=== PATIENT | female | born 1960 | race Caucasian/White ===

== ENCOUNTER → 2016-02-25 | Outpatient (CLI) | payer OTHER ==
[~2016-02-25] MED LIST: THROMBIN (RECOMBINANT) 5,000 UNIT VIAL TP ONE
--- NOTE | 2016-02-25 10:07 | MA ---
Diagnostic Digital Mammogram Left Breast Reason for examination: Follow up sonographically guided left breast biopsy. Technique: Craniocaudal and true lateral views were obtained. Findings: The Suros marker is deployed at the biopsy site in the upper left breast at approximately t he 11:00 position. Impression: The Suros marker is deployed at the biopsy site. We will await pathologic results.
--- NOTE | 2016-02-25 10:43 | US ---
Vacuum-Assisted Ultrasound-Guided Core Biopsy of the Left Breast Reason for examination: Evaluate suspicious nodule at the 11:00 position of the left breast. Crosscutting Measure #226: Current tobacco user: no. Technique: Informed consent was obtained. Following sterile preparation and local anesthesia and util izing vacuum assistance and sonographic guidance, a 9-gauge Suros needle was advanced into the lesion . Multiple large core biopsies were obtained. The biopsy was performed with continuous real time sono graphic monitoring. A Suros marker was deployed to haseeb the biopsy site. The needle was removed and h emostasis was obtained with manual compression. The patient tolerated the procedure well and no immed iate complications occurred. A post biopsy mammogram will be obtained to evaluate marker deployment. Discharge instructions were given by the Radiology nurse. Impression: Successful sonographically guided large core left breast biopsy. Material was sent to Pathology. We will await results.
[2016-03-01 14:16] LABS: ACCESSION # HR17-3316 (()); INTERPRETATION See Comments (())
== END ==
LOC: FIMAGING 08:20
PROVIDERS: ATTEND Radiology Diagnostic Radiology
PROC: 0HBU3ZX Excision of Left Breast, Percutaneous Approach, Diagnostic (ICD-10-PCS; principal; 2016-02-25)
DX: C50.912 Malignant neoplasm of unspecified site of left female breast (principal)
CPT/HCPCS: G0206

== ENCOUNTER → 2016-03-24 | Outpatient (CLI) | payer OTHER ==
[~2016-03-24] MED LIST changes: +GADOBUTROL 10 ML VIAL IVP ONE; -THROMBIN (RECOMBINANT) 5,000 UNIT VIAL TP ONE
== END ==
LOC: FIMAGING 06:59
PROVIDERS: ATTEND Internal Medicine Hematology & Oncology
DX: C50.212 Malignant neoplasm of upper-inner quadrant of left female breast (principal)
CPT/HCPCS: 0159T; A9585; C8908

== ENCOUNTER → 2016-10-14 | Outpatient (CLI) | payer OTHER | LOC: BRMIMAGING 08:50 | PROVIDERS: ATTEND Internal Medicine Hematology & Oncology | DX: Z12.39 Encounter for other screening for malignant neoplasm of breast (principal); Z85.3 Personal history of malignant neoplasm of breast; Z92.3 Personal history of irradiation | CPT/HCPCS: G0206 ==

== ENCOUNTER → 2017-01-14 | Outpatient (CLI) | payer OTHER | LOC: BRMIMAGING 08:31 | DX: Z12.31 Encounter for screening mammogram for malignant neoplasm of breast (principal) | CPT/HCPCS: G0202 ==

== ENCOUNTER → 2017-07-14 | Outpatient (CLI) | payer OTHER | LOC: FIMAGING 15:07 | PROVIDERS: ATTEND Internal Medicine Hematology & Oncology | DX: Z08 Encounter for follow-up examination after completed treatment for malignant neoplasm (principal); Z85.3 Personal history of malignant neoplasm of breast; Z92.3 Personal history of irradiation ==

== ENCOUNTER → 2018-01-16 | Outpatient (CLI) | payer OTHER | LOC: FIMAGING 09:16 | PROVIDERS: ATTEND Internal Medicine Hematology & Oncology | DX: Z12.31 Encounter for screening mammogram for malignant neoplasm of breast (principal); Z85.3 Personal history of malignant neoplasm of breast ==

== ENCOUNTER → 2018-04-25 | Outpatient (CLI) | payer OTHER | LOC: FIMAGING 09:04 | DX: N60.02 Solitary cyst of left breast (principal); Z85.3 Personal history of malignant neoplasm of breast ==